=== PATIENT | male | born 1980 | race American Indian/Alaskan Native ===

== ENCOUNTER 2019-11-21 04:18 | Emergency (ER) | payer SELFPAY ==
[2019-11-21 04:36] VITALS: BP 126/88
--- NOTE | 2019-11-21 05:02 | Emergency Department Report ---
Chief Complaint: Urogenital-Male Stated Complaint: POSS STD Time Seen by Provider: 11/21/19 04:58 - HPI History of Present Illness: Patient is a 39-year-old male that presents emergency room for STD exposure. Patient denies penile discharge. Patient denies pain. Patient denies dysuria. Patient states an ex-girlfriend called her and told him that she had an STD and he needs to be checked out. - ROS Review of Systems: 10 point review of systems is negative. - Exam Vital Signs: Vital Signs 11/21/19 04:34 Temperature 97.6 F Pulse Rate 70 Respiratory 18 Rate Blood Pressure 126/88 [Right] O2 Sat by Pulse 100 Oximetry Physical Exam: The patient appeared well nourished and normally developed. Vital signs as documented. Head exam is unremarkable. Neck is supple. MSE screening note: Focused history and physical exam performed. Due to findings the following was ordered: ED Medical Decision Making - Medical Decision Making Patient is a 39-year-old male who presents emergency room for an STD screen. Patient does not meet the requirements for an emergency medical visit. Patient does not have a emergent medical condition. - Differential Diagnosis Male STD. ED Disposition for MSE Clinical Impression: Possible exposure to STD Disposition: Z-07 MED SCREENING EXAM-LEFT Is pt being admited?: No Does the pt Need Aspirin: No Condition: Stable Instructions: Safe Sex (ED) Additional Instructions: Patient to follow-up with primary care in as soon as possible. Patient to avoid sexual activity until he is cleared by his primary care. Patient to rest. Patient to increase water. Patient to take Tylenol or ibuprofen as needed for pain. Patient to return to the ER if condition worsens, changes or new symptoms arise. Referrals: [facility] [Provider Group] - SHAD CAPONE MD [Staff Physician] - NICOLAS Time of Disposition: 05:02
== END 2019-11-21 05:18 | disposition left against medical advice (07) ==
LOC: ED 04:18
DX: Z20.2 Contact with and (suspected) exposure to infections with a predominantly sexual mode of transmission (principal)
CPT/HCPCS: 99281